=== PATIENT | male | born 1965 | race Caucasian/White ===

== ENCOUNTER 2017-01-15 16:36 | Emergency (ER) | payer OTHER ==
[~2017-01-15] VITALS: Ht 180.3 cm; Wt 102.1 kg
[~2017-01-15 16:36] MED LIST: /ATOR40TA PO; AMBI12.52 PO; ASPI81TA51 PO; BYST5TAB PO; CLOP75TA2 PO; FLUTISP; NITR4TASL SL; PROZ10CA7 PO; VITMTA PO; XANA0.5T PO
[2017-01-15] MEDS ORDERED: CLINDAMYCIN (16:55)
[2017-01-15] MEDS ORDERED: PROZ20CA11 PO (16:55)
[2017-01-15] MEDS ORDERED: BYST2.5T2 PO (16:55)
[2017-01-15] MEDS ORDERED: METF750T PO (16:55)
--- NOTE | 2017-01-15 20:00 | REPUSA ---
Clinical history: Pain, swelling. Findings: The right common femoral, superficial femoral, popliteal, and other deep venous structures compress normally and demonstrate normal color Doppler flow. Normal venous waveforms with augmentatio n are seen. Impression: No evidence of deep vein thrombosis in the right femoral popliteal venous system.
[2017-01-15 20:04] VITALS: BP 145/86
--- NOTE | 2017-01-15 20:10 | REPUSA ---
Clinical history: right leg swelling/mass. Findings: Real-time ultrasound imaging of the right lower leg anteriorly was performed. Normal hetero geneous fibroglandular tissue is noted. There is a focal well circumscribed fluid collection in the a nterior subcutaneous tissues measuring 4.3 x 3.6 x 0.7 cm. No significant increased vascularity is se en at the site. No evidence of calcifications are appreciated. No other gross abnormalities. Impression: Discrete cystic collection in the right anterior soft tissues that the level of the lower leg, likely representing a posttraumatic hematoma. Follow-up is suggested as clinically indicated.
--- NOTE | 2017-01-16 09:50 | ED PDOC ---
Provider Note dr hernandez faxed formal report of [facility] Merari Joy MD Jan 16, 2017 09:50
== END 2017-01-15 20:19 | disposition home or self-care (01) ==
LOC: M ED 18:55
DX: S80.11XA Contusion of right lower leg, initial encounter (principal); Z87.891 Personal history of nicotine dependence; Z86.73 Personal history of transient ischemic attack (TIA), and cerebral infarction without residual deficits; Z98.61 Coronary angioplasty status; X58.XXXA Exposure to other specified factors, initial encounter; Y92.89 Other specified places as the place of occurrence of the external cause; Y93.89 Activity, other specified; Y99.0 Civilian activity done for income or pay

== ENCOUNTER 2017-05-23 15:23 | Emergency (ER) | payer OTHER ==
[~2017-05-23] VITALS: Ht 180.3 cm; Wt 102.1 kg
[~2017-05-23 15:23] MED LIST changes: +BYST2.5T2 PO; +CLINDAMYCIN; +METF750T PO; +PROZ20CA11 PO
[2017-05-23] MEDS ORDERED: NITROGLYCERIN 0.4 MG SUBL TABLET SL ONE (16:00)
[2017-05-23] MEDS ORDERED: ASPIRIN 81 MG CHEW TABLET PO ONE (16:00)
[2017-05-23 16:30] VITALS: BP 129/85
[2017-05-23 16:46] LABS: BASO # 0.1 K/mm3 (0.0-0.2); EOS # 0.1 K/mm3 (0.0-0.50); EOS % 1.9 % (0.0-3.0); LARGE UNSTAINED CELL # 0.2 K/mm3 (0.0-0.4); LARGE UNSTAINED CELL % 3.1 % (0.0-4.0); LYMPH # 1.8 K/mm3 (1.5-4.5); LYMPH % 23.4 % (24.0-44.0); MEAN CORPUSCULAR HEMOGLOBIN 30.1 pg (27.0-33.0); MEAN CORPUSCULAR HGB CONC 34.8 g/dl (32.0-36.5); MEAN CORPUSCULAR VOLUME 86.5 fl (80.0-96.0); MONO # 0.7 K/mm3 (0.0-0.8); MONO % 10.1 % (0.0-5.0); NEUTROPHILS # 4.1 K/mm3 (1.8-7.7); NEUTROPHILS % 60.4 % (36.0-66.0); PLATELET COUNT, AUTOMATED 270 k/mm3 (150-450); RED CELL DISTRIBUTION WIDTH 12.9 % (11.5-14.5); WHITE BLOOD COUNT 6.7 K/mm3 (4.0-10.0)
[2017-05-23 16:53] LABS: INR 1.02
[2017-05-23 17:14] LABS: ALBUMIN 3.6 GM/DL (3.2-5.2); ALKALINE PHOSPHATASE 93 U/L (45-117); ALT/SGPT 77 U/L (12-78); ANION GAP 6 MEQ/L (8-16); AST/SGOT 46 U/L (15-37); BILIRUBIN,DIRECT 0.3 MG/DL (0.0-0.2); BILIRUBIN,TOTAL 1.4 MG/DL (0.2-1.0); BLOOD UREA NITROGEN 12 MG/DL (7-18); CALCIUM LEVEL 8.7 MG/DL (8.5-10.1); CARBON DIOXIDE LEVEL 27 MEQ/L (21-32); CHLORIDE LEVEL 105 MEQ/L (98-107); CREATININE FOR GFR 0.79 MG/DL (0.70-1.30); GLOMERULAR FILTRATION RATE > 60.0 (>60); GLUCOSE, FASTING 105 MG/DL (70-105); SODIUM LEVEL 138 MEQ/L (136-145); TOTAL PROTEIN 7.2 GM/DL (6.4-8.2)
--- NOTE | 2017-05-23 17:56 | REP ---
CHEST, TWO VIEWS: There is no evidence of acute infiltrate. No pleural effusion is seen. The heart is normal in size. The mediastinal silhouette is unremarkable. The visualized osseous structures are intact. IMPRESSION: No acute pulmonary disease. Signed by Shoaib Kerns MD 05/23/2017 07:29 P
[2017-05-23] MEDS ORDERED: metFORMIN (GLUCOPHAGE) 500 MG TAB PO ONE (18:30)
[2017-05-23] MEDS ORDERED: ISOVUE-370 76% 100ML VIAL (Q9967) As Ordered ONE (18:40)
--- NOTE | 2017-05-23 19:10 | REPUSA ---
CT angiogram of the chest Clinical statement: Chest pain and shortness of breath. Technique: Multiple axial CT images were obtained from the thoracic inlet through the upper abdomen a fter a bolus administration of nonionic intravenous contrast. Coronal and sagittal reconstructions we re also obtained. No comparison is available. Findings: The pulmonary arteries are well-opacified with contrast, with no intraluminal filling defec ts to suggest embolism. The thoracic aorta is unremarkable. Thyroid gland is within normal limits. Th ere is no thoracic lymphadenopathy. There are no pericardial or pleural effusions. The lungs are nikki r. Limited imaging of the upper abdomen is unremarkable. There are no suspicious osseous lesions. Impression: Unremarkable CT examination of the chest. No evidence of pulmonary embolism.
--- NOTE | 2017-05-23 19:41 | ECGEPIP ---
Stationary ECG Study [facility] - ED Test Date: 2017-05-23 Pat Name: ZEINA CA Department: Room: - Gender: M Chief Orthoptist: ervin : 1965 Requested By: DIONICIO Moreno Order Number: [id number] Reading MD: Tommy Bob Measurements Intervals Fertile Rate: 62 P: 50 NC: 148 QRS: 24 QRSD: 102 T: 43 QT: 408 QTc: 416 Interpretive Statements SINUS RHYTHM INFERIOR MYOCARDIAL INFARCTION, PROBABLY OLD INTERPRETATION BASED ON A DEFAULT AGE OF 40 YEARS SIMILAR TO 09/01/15 Electronically Signed On 05-23-2017 19:41:03 EDT by Tommy Bob
[2017-05-23 22:38] VITALS: BP 110/78
--- NOTE | 2017-05-27 19:12 | ECGEPIP ---
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 Electronically Signed On 05-27-2017 19:12:29 EDT by Eder Torres
== END 2017-05-23 22:50 | disposition home or self-care (01) ==
LOC: M ED 15:23
DX: R07.9 Chest pain, unspecified (principal); I25.2 Old myocardial infarction; I10 Essential (primary) hypertension; E11.9 Type 2 diabetes mellitus without complications; E78.5 Hyperlipidemia, unspecified; Z95.5 Presence of coronary angioplasty implant and graft; Z87.39 Personal history of other diseases of the musculoskeletal system and connective tissue; Z87.891 Personal history of nicotine dependence; Z79.82 Long term (current) use of aspirin; Z79.899 Other long term (current) drug therapy
CPT/HCPCS: 36415; 71020; 71275; 80048; 80076; 82550; 82553; 83690; 83880; 85025; 85610; 85730; 93005; 93041; 94760; 99285; Q9967

== ENCOUNTER 2019-04-01 10:34 | Day surgery (SDC) | payer OTHER ==
[~2019-04-01] VITALS: Ht 180.3 cm; Wt 98.0 kg
[~2019-04-01 10:34] MED LIST changes: -/ATOR40TA PO; +ASPI81TA85 PO; +FLUT1SPR2; -FLUTISP; +JARD1TAB PO; +LIPI1TAB2 PO; +LIPI20TA PO; +MOBI15TA PO; +NS 1,000 ML IV ONE
[2019-04-01] MEDS ORDERED: PROPOFOL 200 MG/20 ML VIAL As Ordered ONE ×2 (11:16→11:23)
[2019-04-01] MEDS ORDERED: LIDOCAINE 2% INJ 100 MG/5 ML SDV (FOR ANES.) As Ordered ONE (11:16)
--- NOTE | 2019-04-01 11:28 | ROOR ---
Patient Name: Radames Bear Procedure Date: 04/01/2019 11:02 AM Date of : 1965 Age: 53 Room: [facility] Gender: Male Note Status: Finalized Procedure: Total Colonoscopy to Cecum + Biopsy Polypectomy Indications: Colon cancer screening in patient at increased risk: Colorectal cancer in father Providers: Memo Weston MD Referring MD: Alex Cox MD Requesting Provider: Medicines: Monitored Anesthesia Care Complications: No immediate complications. Procedure: Pre-Anesthesia Assessment: - The heart rate, respiratory rate, oxygen saturations, blood pressure, adequacy of pulmonary ventilation, and response to care were monitored throughout the procedure. The Colonoscope was introduced through the anus and advanced to the cecum, identified by appendiceal orifice and ileocecal valve. The colonoscopy was performed without difficulty. The patient tolerated the procedure well. The quality of the bowel preparation was excellent. Findings: The perianal and digital rectal examinations were normal. Non-bleeding internal hemorrhoids were found during retroflexion. The hemorrhoids were small and Grade I (internal hemorrhoids that do not prolapse). A small polyp was found in the cecum. The polyp was sessile. The polyp was removed with a jumbo cold forceps. Resection and retrieval were complete. The exam was otherwise without abnormality on direct and retroflexion views. Impression: - Non-bleeding internal hemorrhoids. - One small polyp in the cecum, removed with a jumbo cold forceps. Resected and retrieved. - The examination was otherwise normal on direct and retroflexion views. - The exam was otherwise normal to the cecum. Recommendation: - Patient has a contact number available for emergencies. The signs and symptoms of potential delayed complications were discussed with the patient. Return to normal activities tomorrow. Written discharge instructions were provided to the patient. - Discharge patient to home. - Continue present medications. - Await pathology results. - Telephone GI clinic for pathology results in 1 week. - Check Portal Online for Path Results.([email or web address] - Repeat colonoscopy in 5 years for surveillance based on pathology results. - Return to referring physician. - The findings and recommendations were discussed with the patient's family. Memo Weston MD Memo Weston MD 04/01/2019 11:27:57 AM Electronically signed by Memo Weston MD Number of Addenda: 0 Note Initiated On: 04/01/2019 11:02 AM Estimated Blood Loss: Estimated blood loss: none.
[2019-04-01 11:45] VITALS: BP 127/77
== END 2019-04-01 11:55 | disposition home or self-care (01) ==
LOC: M OPP 10:34
PROVIDERS: ATTEND Internal Medicine Gastroenterology
DX: D12.0 Benign neoplasm of cecum (principal); K64.0 First degree hemorrhoids; Z12.11 Encounter for screening for malignant neoplasm of colon; Z80.0 Family history of malignant neoplasm of digestive organs

== ENCOUNTER → 2019-07-17 | Outpatient (REF) | payer OTHER ==
[~2019-07-17] MED LIST changes: -METF750T PO; +METF750T36 PO; -NS 1,000 ML IV ONE
[2019-07-17 13:03] LABS: RHEUMATOID FACTOR QUANT < 10.0 IU/ML (<15.0); URIC ACID 4.2 MG/DL (3.5-7.2)
[2019-07-21 00:06] LABS: ANTINUCLEAR ANTIBODIES DIRECT Negative (Negative); CYCLIC CITRULLINATED PEPTIDE 12 units (0-19); Lyme Disease IgG Ab 18 kDa Ban Absent (.); Lyme Disease IgG Ab 23 kDa Ban Absent (.); Lyme Disease IgG Ab 28 kDa Ban Absent (.); Lyme Disease IgG Ab 30 kDa Ban Absent (.); Lyme Disease IgG Ab 39 kDa Ban Absent (.); Lyme Disease IgG Ab 41 kDa Ban Absent (.); Lyme Disease IgG Ab 45 kDa Ban Absent (.); Lyme Disease IgG Ab 58 kDa Ban Absent (.); Lyme Disease IgG Ab 66 kDa Ban Absent (.); Lyme Disease IgG Ab 93 kDa Ban Absent (.); Lyme Disease IgG West Blot Int Negative (.); Lyme Disease IgG/IgM Antibodie <0.91 ISR (0.00-0.90); Lyme Disease IgM Ab 23 kDa Ban Absent (.); Lyme Disease IgM Ab 39 kDa Ban Absent (.); Lyme Disease IgM Ab 41 kDa Ban Absent (.); Lyme Disease IgM Ab Quantitati 1.15 index (0.00-0.79); Lyme Disease IgM West Blot Int Negative (.)
== END ==
LOC: M LABDRAW1 12:04
PROVIDERS: ATTEND Family Medicine
DX: M25.50 Pain in unspecified joint (principal)

== ENCOUNTER → 2020-01-14 | Outpatient (REF) | payer OTHER | LOC: M SFHCLERA 18:54 | PROVIDERS: ATTEND Physician Assistant | DX: N45.1 Epididymitis (principal) ==

== ENCOUNTER 2020-01-22 10:56 | Emergency (ER) | payer OTHER ==
[~2020-01-22] VITALS: Ht 180.3 cm; Wt 98.0 kg
[2020-01-22] MEDS ORDERED: TRUL10IN SC (11:06)
[2020-01-22 12:08] LABS: BASO # 0.1 10^3/uL (0.0-0.2); EOS # 0.2 10^3/uL (0.0-0.5); EOS % 2.6 % (0.0-3.0); HEMATOCRIT 44.3 % (42.0-52.0); HEMOGLOBIN 15.2 g/dl (13.5-17.5); LYMPH # 1.3 10^3/uL (1.5-5.0); MEAN CORPUSCULAR HEMOGLOBIN 30.6 pg (27.0-33.0); MEAN CORPUSCULAR HGB CONC 34.3 g/dl (32.0-36.5); MEAN CORPUSCULAR VOLUME 89.1 fl (80.0-96.0); MONO # 0.7 10^3/uL (0.0-0.8); MONO % 10.2 % (0.0-5.0); NEUTROPHILS # 4.6 10^3/uL (1.5-8.5); NEUTROPHILS % 66.5 % (36.0-66.0); PLATELET COUNT, AUTOMATED 281 10^3/uL (150-450); RED BLOOD COUNT 4.97 10^6/uL (4.30-6.10)
[2020-01-22 12:33] LABS: BLOOD UREA NITROGEN 12 MG/DL (7-18); CALCIUM LEVEL 9.3 MG/DL (8.5-10.1); CARBON DIOXIDE LEVEL 30 MEQ/L (21-32); CHLORIDE LEVEL 101 MEQ/L (98-107); CREATININE FOR GFR 0.82 MG/DL (0.70-1.30); GLOMERULAR FILTRATION RATE > 60.0 (>56); GLUCOSE, FASTING 124 MG/DL (70-100); POTASSIUM SERUM 4.4 MEQ/L (3.5-5.1); SODIUM LEVEL 138 MEQ/L (136-145)
[2020-01-22 13:23] LABS: APPEARANCE, URINE CLEAR (CLEAR); BILIRUBIN, URINE AUTO NEGATIVE (NEGATIVE); BLOOD, URINE BLOOD NEGATIVE (NEGATIVE); COLOR, URINE YELLOW (YELLOW); GLUCOSE, URINE (UA) AUTO 3+ mg/dL (NEGATIVE); KETONE, URINE AUTO TRACE mg/dL (NEGATIVE); LEUKOCYTE ESTERASE, URINE AUTO NEGATIVE (NEGATIVE); NITRITE, URINE AUTO NEGATIVE (NEGATIVE); PROTEIN, URINE AUTO NEGATIVE (NEGATIVE); SPECIFIC GRAVITY URINE AUTO 1.023 (1.002-1.035); UROBILINOGEN, URINE AUTO 0.2 mg/dL (0.0-2.0)
--- NOTE | 2020-01-22 13:24 | REP ---
Scrotal ultrasound for right groin/testicular pain. The patient had a a of as at the knee 10 years ago. The right testis measures 5.0 x 2.2 x 2.9 cm. The left testis measures 4.5 x 2.4-0.4 cm. The testes are normal size. There is vascular flow in both testes. The Doppler resistive index in the parenchymal arteries of the right testis is 0.72 and left testis 0.50. There are no testicular masses or cysts. There is tubular ectasia of the right epididymis and vas deferens. There is a small cyst at the upper pole of the left testis, likely a cyst of the tunica albuginea. There is a 3 mm complex right epididymal head cyst. There are multiple 3 mm cysts in the left epididymal head. There are bilateral varicoceles. Impression: Tubular ectasia of the right epididymis and vas deferens. Bilateral varicoceles. Tunica albuginea cyst at the upper pole of the left testis. Bilateral epididymal head cysts as described. Electronically Signed by Shoaib Nunes MD 01/22/2020 01:15 P
[2020-01-22 13:27] LABS: BACTERIA, URINE AUTO NEGATIVE (NEGATIVE); MUCUS, URINE SMALL (NEGATIVE); RBC, URINE AUTO 1 /HPF (0-3); SQUAMOUS EPITHELIAL CELL UR AU 0 /HPF (0-6); WBC, URINE AUTO 3 /HPF (0-3)
--- NOTE | 2020-01-22 13:27 | REP ---
Bladder ultrasound: The pre void bladder volume is 91 ml., the bladder is incompletely distended. The postvoid bladder volume is 22 ml. The postvoid residual is 24%. The bladder wall is mildly thickened, however, this could be artifact from incomplete distension. The prostate measures 3.6 x 3.8 x 2.5 cm for a volume of 17.9 milliliters. This is normal size. The left inguinal canal has an unremarkable appearance. The left inguinal canal demonstrates a non reducible fat containing hernia. Electronically Signed by Shoaib Nunes MD 01/22/2020 01:19 P
[2020-01-22] MEDS ORDERED: BISACODYL 10 MG SUPP PR ONE (14:15)
[2020-01-22] MEDS ORDERED: DICYCLOMINE 10 MG CAP PO ONE (14:15)
[2020-01-22] MEDS ORDERED: SIMETHICONE 80 MG CHEW TAB PO ONE (14:15)
--- NOTE | 2020-01-22 14:48 | REP ---
Abdomen two views including two supine and one upright views of the : Comparisons is rhe CT of the abdomen - pelvis dated 08/17/2007. The bowel gas pattern is normal. There are no calcifications. The skeletal structures and soft tissues otherwise are unremarkable. There is a moderate volume of fecal residue in the colon. Impression: Normal bowel gas pattern. Electronically Signed by Shoaib Nunes MD 01/22/2020 02:39 P
[2020-01-22 16:13] VITALS: BP 134/75
[2020-01-22] MEDS ORDERED: DICY20TA PO (16:21)
[2020-01-22] MEDS ORDERED: SIME180C PO (16:21)
[2020-01-22] MEDS ORDERED: COLA100C5 PO (16:21)
[2020-01-22] MEDS ORDERED: MIRA3350 PO (16:21)
--- NOTE | 2020-01-24 18:47 | ED PDOC ---
Post-Departure Follow-Up dr bryant faxed formal report of scrotal us for fu Merari Whittington MD Jan 24, 2020 18:47
== END 2020-01-22 16:34 | disposition home or self-care (01) ==
LOC: M ED 10:56
DX: K40.90 Unilateral inguinal hernia, without obstruction or gangrene, not specified as recurrent (principal); I86.1 Scrotal varices; N50.3 Cyst of epididymis; K59.00 Constipation, unspecified; E11.9 Type 2 diabetes mellitus without complications; I25.10 Atherosclerotic heart disease of native coronary artery without angina pectoris; Z79.82 Long term (current) use of aspirin; Z79.84 Long term (current) use of oral hypoglycemic drugs; Z79.899 Other long term (current) drug therapy

== ENCOUNTER 2020-01-29 13:34 | Emergency (ER) | payer OTHER ==
[~2020-01-29] VITALS: Ht 180.3 cm; Wt 95.6 kg
[~2020-01-29 13:34] MED LIST changes: +COLA100C5 PO; +DICY20TA PO; +MIRA3350 PO; +SIME180C PO; +TRUL10IN SC
[2020-01-29] MEDS ORDERED: NS 1,000 ML IV ONE (15:00)
[2020-01-29] MEDS ORDERED: ONDANSETRON 4MG/2ML VIAL (J2405) IV ONE (15:00)
[2020-01-29] MEDS ORDERED: KETOROLAC 30 MG/ML VIAL (J1885) IV ONE (15:00)
[2020-01-29 15:38] LABS: BASO # 0.1 10^3/uL (0.0-0.2); BASO % 0.7 % (0.0-1.0); EOS # 0.1 10^3/uL (0.0-0.5); EOS % 1.1 % (0.0-3.0); HEMATOCRIT 41.4 % (42.0-52.0); HEMOGLOBIN 14.1 g/dl (13.5-17.5); LYMPH # 1.9 10^3/uL (1.5-5.0); LYMPH % 25.3 % (24.0-44.0); MEAN CORPUSCULAR HEMOGLOBIN 30.3 pg (27.0-33.0); MEAN CORPUSCULAR HGB CONC 34.1 g/dl (32.0-36.5); MEAN CORPUSCULAR VOLUME 88.8 fl (80.0-96.0); MONO # 0.8 10^3/uL (0.0-0.8); MONO % 10.2 % (0.0-5.0); NEUTROPHILS # 4.7 10^3/uL (1.5-8.5); NEUTROPHILS % 62.3 % (36.0-66.0); PLATELET COUNT, AUTOMATED 300 10^3/uL (150-450); RED BLOOD COUNT 4.66 10^6/uL (4.30-6.10); WHITE BLOOD COUNT 7.5 10^3/uL (4.0-10.0)
[2020-01-29 16:07] LABS: ALT/SGPT 58 U/L (12-78); BILIRUBIN,DIRECT 0.4 MG/DL (0.0-0.2); BILIRUBIN,TOTAL 2.6 MG/DL (0.2-1.0); BLOOD UREA NITROGEN 16 MG/DL (7-18); CALCIUM LEVEL 9.1 MG/DL (8.5-10.1); CARBON DIOXIDE LEVEL 30 MEQ/L (21-32); CHLORIDE LEVEL 103 MEQ/L (98-107); CREATININE FOR GFR 0.86 MG/DL (0.70-1.30); GLOMERULAR FILTRATION RATE > 60.0 (>56); GLUCOSE, FASTING 105 MG/DL (70-100); LIPASE 69 U/L (73-393); POTASSIUM SERUM 4.4 MEQ/L (3.5-5.1); SODIUM LEVEL 136 MEQ/L (136-145); TOTAL PROTEIN 7.6 GM/DL (6.4-8.2)
--- NOTE | 2020-01-29 17:19 | REPVR ---
PROCEDURE INFORMATION: Exam: US Abdomen Limited, Right Upper Quadrant Exam date and time: 01/29/2020 5:09 PM Age: 54 years old Clinical indication: Loose stools / weight loss; Additional info: Loose stools/weight loss TECHNIQUE: Imaging protocol: Real-time ultrasound of the abdomen with image documentation. Examination was focused on the right upper quadrant. COMPARISON: TN ABDOMEN (MIN 2 VIEW) 01/22/2020 2:03 PM FINDINGS: Liver: Mildly echogenic liver. No focal mass Gallbladder: Layering sludge within the gallbladder. No wall thickening.Sonographic Diaz's sign is negative. Common bile duct: Normal. No stones. No dilation. Common bile duct measures 0.5 cm in diameter. Pancreas: Visualized pancreas is unremarkable. Right kidney: The right kidney measures 13.7 cm in length. Normal echogenicity. No hydronephrosis or stones. IMPRESSION: 1. Layering sludge within the gallbladder. No sonographic evidence of acute cholecystitis. 2. Mildly echogenic liver, which could reflect hepatic steatosis. Electronically signed by: Elmer Vo On 01/29/2020 17:19:16 PM
[2020-01-29 17:44] VITALS: BP 121/78
== END 2020-01-29 17:46 | disposition home or self-care (01) ==
LOC: M ED 13:34
DX: N40.0 Benign prostatic hyperplasia without lower urinary tract symptoms (principal); K87 Disorders of gallbladder, biliary tract and pancreas in diseases classified elsewhere; E11.9 Type 2 diabetes mellitus without complications; I10 Essential (primary) hypertension; E78.5 Hyperlipidemia, unspecified; Z79.899 Other long term (current) drug therapy; Z79.84 Long term (current) use of oral hypoglycemic drugs; Z79.82 Long term (current) use of aspirin; Z87.891 Personal history of nicotine dependence
CPT/HCPCS: 76705; 80048; 80076; 81001; 83690; 85025; 96361; 96374; 96375; 99284; J1885; J2405

== ENCOUNTER → 2021-03-03 | Outpatient (REF) | payer OTHER ==
[~2021-03-03] MED LIST changes: -ASPI81TA85 PO; +ASPI81TA86 PO; -DICY20TA PO; +DICY20TA3 PO; -SIME180C PO; +SIME180C25 PO
[2021-03-03 18:21] LABS: CREATININE, URINE 60.2 MG/DL; MALB URINE SIEMENS 5.6 MG/L; MAU/CREAT RATIO 9.3 MCG/MG (0.0-30.0)
== END ==
LOC: M LAB REF 16:47
PROVIDERS: ATTEND Nurse Practitioner Family
DX: E11.65 Type 2 diabetes mellitus with hyperglycemia (principal)

== ENCOUNTER 2021-05-22 16:24 | Emergency (ER) | payer OTHER ==
[~2021-05-22] VITALS: Ht 175.3 cm; Wt 93.3 kg
[2021-05-22] MEDS ORDERED: NS 1,000 ML IV ONE (19:50)
[2021-05-22 19:56] LABS: BASO % 0.7 % (0.0-1.0); EOS # 0.1 10^3/uL (0.0-0.5); EOS % 1.5 % (0.0-3.0); HEMATOCRIT 30.4 % (42.0-52.0); HEMOGLOBIN 9.5 g/dl (13.5-17.5); LYMPH # 1.2 10^3/uL (1.5-5.0); LYMPH % 21.1 % (24.0-44.0); MEAN CORPUSCULAR HEMOGLOBIN 33.1 pg (27.0-33.0); MEAN CORPUSCULAR HGB CONC 31.3 g/dl (32.0-36.5); MEAN CORPUSCULAR VOLUME 105.9 fl (80.0-96.0); MONO # 0.5 10^3/uL (0.0-0.8); MONO % 9.8 % (2.0-8.0); NEUTROPHILS # 3.6 10^3/uL (1.5-8.5); PLATELET COUNT, AUTOMATED 251 10^3/uL (150-450); RED BLOOD COUNT 2.87 10^6/uL (4.30-6.10); WHITE BLOOD COUNT 5.5 10^3/uL (4.0-10.0)
[2021-05-22 20:10] LABS: INR 1.05; PARTIAL THROMBOPLASTIN TIME 35.5 SECONDS (24.2-38.5); PROTHROMBIN TIME 13.9 SECONDS (12.5-14.3)
[2021-05-22 20:19] LABS: ALBUMIN 3.9 GM/DL (3.2-5.2); ALT/SGPT 39 U/L (12-78); BILIRUBIN,DIRECT 0.5 MG/DL (0.0-0.2); BILIRUBIN,TOTAL 8.3 MG/DL (0.2-1.0); BLOOD UREA NITROGEN 16 MG/DL (7-18); CALCIUM LEVEL 8.6 MG/DL (8.5-10.1); CARBON DIOXIDE LEVEL 29 MEQ/L (21-32); CHLORIDE LEVEL 106 MEQ/L (98-107); CREATININE FOR GFR 0.64 MG/DL (0.70-1.30); GLOMERULAR FILTRATION RATE > 60.0 (>56); GLUCOSE, FASTING 104 MG/DL (70-100); LIPASE 67 U/L (73-393); POTASSIUM SERUM 4.1 MEQ/L (3.5-5.1); SODIUM LEVEL 140 MEQ/L (136-145); TOTAL PROTEIN 6.7 GM/DL (6.4-8.2)
[2021-05-22 20:38] LABS: APPEARANCE, URINE CLEAR (CLEAR); BACTERIA, URINE AUTO NEGATIVE (NEGATIVE); BILIRUBIN, URINE AUTO NEGATIVE (NEGATIVE); BLOOD, URINE BLOOD NEGATIVE (NEGATIVE); COLOR, URINE YELLOW (YELLOW); GLUCOSE, URINE (UA) AUTO 3+ mg/dL (NEGATIVE); KETONE, URINE AUTO NEGATIVE (NEGATIVE); LEUKOCYTE ESTERASE, URINE AUTO NEGATIVE (NEGATIVE); MUCUS, URINE SMALL (NEGATIVE); NITRITE, URINE AUTO NEGATIVE (NEGATIVE); PROTEIN, URINE AUTO NEGATIVE (NEGATIVE); RBC, URINE AUTO 2 /HPF (0-3); SPECIFIC GRAVITY URINE AUTO 1.035 (1.002-1.035); SQUAMOUS EPITHELIAL CELL UR AU 0 /HPF (0-6); WBC, URINE AUTO 0 /HPF (0-3)
[2021-05-22] MEDS ORDERED: ISOVUE-370 76% 100ML VIAL As Ordered ONE (20:53)
--- NOTE | 2021-05-22 22:58 | REPVR ---
PROCEDURE INFORMATION: Exam: CT Abdomen And Pelvis With Contrast Exam date and time: 05/22/2021 9:05 PM Age: 55 years old Clinical indication: Lower abd pain, jaundice TECHNIQUE: Imaging protocol: Computed tomography of the abdomen and pelvis with contrast. Radiation optimization: All CT scans at this facility use at least one of these dose optimization techniques: automated exposure control; mA and/or kV adjustment per patient size (includes targeted exams where dose is matched to clinical indication); or iterative reconstruction. Contrast material: ISOVUE 370; Contrast volume: 100 ml; Contrast route: INTRAVENOUS (IV); COMPARISON: 1. GALLBLADDER US 01/29/2020 4:59 PM 2. BLADDER (LIMITED PELVIC) US 01/22/2020 12:15:23 PM FINDINGS: Lungs: There is minimal dependent atelectasis in both lower lobes. The lungs were not fully imaged. Heart: No cardiomegaly or pericardial effusion is noted. There are coronary artery calcifications. Liver: The attenuation of the liver is lower compared to the spleen, which can be seen with fatty liver infiltration. No liver lesion is identified. The contour of the liver is smooth. No hepatomegaly is noted. Gallbladder and bile ducts: No calcified gallstones are noted. No gallbladder wall thickening, pericholecystic fluid, or pericholecystic inflammatory changes are identified. No dilation of the bile ducts is noted. No calcified stones are seen in the common bile duct. Pancreas: Normal. No dilation of the main pancreatic duct is noted. Spleen: No splenic lesion is noted. The spleen is enlarged and measures 15.1 cm. Adrenal glands: Normal. No adrenal mass is noted. Kidneys and ureters: No calculi are seen in the kidneys or ureters. There is no hydronephrosis or hydroureter. There are no wedge-shaped areas of low attenuation in the kidneys to suggest pyelonephritis. There is no renal abscess or perinephric fluid collection. There are several benign-appearing cysts in the liver measuring up to 7 mm, for which follow-up imaging is not necessary. Stomach and bowel: There is no evidence for a bowel obstruction, diverticulosis, diverticulitis, colitis, perforated viscus, pneumatosis intestinalis, intussusception, or volvulus. There is a moderate amount of formed stool in the cecum and ascending colon. A mild amount of stool is present in the remainder of the colon. Appendix: Normal. There is no evidence for appendicitis. Intraperitoneal space: No free air. No ascites. No abscess. Retroperitoneal space: No fluid collection. No mass. Vasculature: The abdominal aorta is patent, normal in caliber, and there is no dissection. The iliac arteries, common femoral arteries, renal arteries, celiac artery, superior mesenteric artery, and inferior mesenteric artery are patent. There are mild atherosclerotic calcifications. The portal veins, splenic vein, superior mesenteric vein, inferior mesenteric vein, and renal veins are patent. Lymph nodes: No enlarged lymph nodes. Urinary bladder: The distended urinary bladder is normal in appearance. No stones or masses are seen in the bladder. Reproductive: There are calcifications in the prostate gland. The seminal vesicles are unremarkable. Bones/joints: There is no fracture or dislocation. No suspicious osteolytic or osteoblastic lesion. There are degenerative changes involving the lower lumbar spine. Incidental note is made of an intraosseous hemangioma in the L3 vertebral body. Soft tissues: There is a small fat containing indirect right inguinal hernia. No soft tissue fluid collection. IMPRESSION: 1. No acute findings in the abdomen or pelvis. 2. Fatty liver. 3. Splenomegaly. 4. Small fat containing indirect right inguinal hernia. Electronically signed by: Sony Sung On 05/22/2021 22:58:21 PM
[2021-05-22 23:28] VITALS: BP 102/55
[2021-05-22 23:34] LABS: LDH LACTATE DEHYDROGENASE 270 U/L (87-241)
[2021-05-23 11:09] LABS: HEPATITIS A ANTIBODY IGM NEGATIVE (NEGATIVE); HEPATITIS B CORE ANTIBODY IGM NEGATIVE (NEGATIVE); HEPATITIS B SURFACE ANTIGEN NEGATIVE (NEGATIVE)
== END 2021-05-22 23:44 | disposition home or self-care (01) ==
LOC: M ED 16:24
DX: E80.7 Disorder of bilirubin metabolism, unspecified (principal); R16.1 Splenomegaly, not elsewhere classified; D64.9 Anemia, unspecified; R17 Unspecified jaundice; K40.20 Bilateral inguinal hernia, without obstruction or gangrene, not specified as recurrent; R10.9 Unspecified abdominal pain; I25.2 Old myocardial infarction; I10 Essential (primary) hypertension; E78.5 Hyperlipidemia, unspecified; G47.33 Obstructive sleep apnea (adult) (pediatric); Z87.442 Personal history of urinary calculi; Z95.5 Presence of coronary angioplasty implant and graft; Z79.82 Long term (current) use of aspirin; Z79.84 Long term (current) use of oral hypoglycemic drugs; Z79.899 Other long term (current) drug therapy
CPT/HCPCS: 74177; 80053; 81001; 82248; 82977; 83010; 83615; 83690; 85025; 85610; 85730; 86705; 86709; 86803; 86880; 87340; 96360; 99284; Q9967

== ENCOUNTER → 2021-05-26 | Outpatient (CLI) | payer OTHER ==
[~2021-05-26] MED LIST changes: +B-1250TA3 PO; +D31000TA2 PO; +DICY10CA13 PO; +DULO1CAP6 PO; +ECOT81TA5 PO; +FERR325T3 PO; +FLUTISP NARES; +METF10004 PO; +NITR0.4S14 SL; +OMEP-221 PO
[2021-05-26 17:05] LABS: BASO # 0.1 10^3/uL (0.0-0.2); BASO % 0.8 % (0.0-1.0); EOS # 0.1 10^3/uL (0.0-0.5); HEMATOCRIT 32.6 % (42.0-52.0); HEMOGLOBIN 10.3 g/dl (13.5-17.5); LYMPH # 1.3 10^3/uL (1.5-5.0); LYMPH % 20.9 % (24.0-44.0); MEAN CORPUSCULAR HEMOGLOBIN 33.6 pg (27.0-33.0); MEAN CORPUSCULAR HGB CONC 31.6 g/dl (32.0-36.5); MEAN CORPUSCULAR VOLUME 106.2 fl (80.0-96.0); MONO # 0.6 10^3/uL (0.0-0.8); MONO % 9.3 % (2.0-8.0); NEUTROPHILS # 4.1 10^3/uL (1.5-8.5); NEUTROPHILS % 66.2 % (36.0-66.0); PLATELET COUNT, AUTOMATED 293 10^3/uL (150-450); RED BLOOD COUNT 3.07 10^6/uL (4.30-6.10); WHITE BLOOD COUNT 6.1 10^3/uL (4.0-10.0)
[2021-05-26 17:32] LABS: ALT/SGPT 46 U/L (12-78); BILIRUBIN,TOTAL 5.6 MG/DL (0.2-1.0); BLOOD UREA NITROGEN 14 MG/DL (7-18); CALCIUM LEVEL 8.9 MG/DL (8.5-10.1); CARBON DIOXIDE LEVEL 31 MEQ/L (21-32); CHLORIDE LEVEL 105 MEQ/L (98-107); CREATININE FOR GFR 0.74 MG/DL (0.70-1.30); FERRITIN 228 NG/ML (26-388); GLOMERULAR FILTRATION RATE > 60.0 (>56); GLUCOSE, FASTING 134 MG/DL (70-100); IRON (FE) 90 UG/DL (65-175); LDH LACTATE DEHYDROGENASE 230 U/L (87-241); PERCENT SATURATION 27.8 % (19.7-50.0); POTASSIUM SERUM 3.9 MEQ/L (3.5-5.1); SODIUM LEVEL 138 MEQ/L (136-145); TOTAL IRON BINDING CAPACITY 324 UG/DL (250-450)
== END ==
LOC: M LAB 16:31
PROVIDERS: ATTEND Internal Medicine Medical Oncology
DX: R16.1 Splenomegaly, not elsewhere classified (principal)

== ENCOUNTER → 2021-06-23 | Outpatient (CLI) | payer OTHER ==
[~2021-06-23] MED LIST changes: +FOLI1TAB11 PO
--- NOTE | 2021-06-23 19:55 | ECHO ---
ECHOCARDIOGRAM DATE OF PROCEDURE: 06/23/2021 Age: Gender: Male Height: 150 cm Weight: 89 kg REFERRING PHYSICIAN: Freida Zhu M.D. DIAGNOSIS: Hereditary hemolytic anemia. MEASUREMENTS: IVS 1.2 LV 4.6 LVPW 1.1 LA 3.3 Aorta 3.6 Mitral E wave velocity 68 A wave velocity 61 E prime septal 7.9 E prime lateral 9.9 Left atrial volume index 30 Left ventricular ejection fraction 61% FINDINGS: This study is of a good technical quality. The patient is in sinus rhythm. Normal left ventricular (LV) size with mild left ventricular hypertrophy (LVH) and preserved LV systolic function. Calculated left ventricular ejection fraction (LVEF) 61%. Normal right ventricular (RV) size and systolic function. Both atria are normal. Aortic, mitral and tricuspid valve appear normal. Pulmonic valve was not well seen. No pericardial effusion is noted. Inferior vena cava is normal size. Aortic root, aortic arch and abdominal aorta appear normal. Doppler interrogation reveals competent aortic valve. There is trace mitral insufficiency. Tricuspid valve is functionally competent. Mitral inflow pattern and tissue Doppler imaging of mitral annulus reveal normal diastolic function. CONCLUSIONS: 1. Study is of good technical quality, patient is in sinus rhythm. 2. Normal left ventricular (LV) size and mild left ventricular hypertrophy (LVH) and preserved LV systolic function. Normal diastolic function. Calculated left ventricular ejection fraction (LVEF) 61%. 3. No significant valvular disease. 4. Normal central venous pressure. 5. Unable to estimate pulmonary artery pressure, but no signs to suggest pulmonary hypertension.
== END ==
LOC: M CARPUL 11:03
PROVIDERS: ATTEND Internal Medicine Medical Oncology
DX: D58.9 Hereditary hemolytic anemia, unspecified (principal)

== ENCOUNTER 2021-07-19 19:08 | Emergency (ER) | payer OTHER ==
[~2021-07-19] VITALS: Ht 180.3 cm; Wt 88.4 kg
[2021-07-19 19:08] VITALS: BP 121/69
[~2021-07-19 19:08] MED LIST changes: +LEVE1INJ5 SQ; +PRED10TA2 PO; +PRED20TA PO
== END 2021-07-19 22:58 | disposition left against medical advice (07) ==
LOC: M ED 19:08
DX: Z53.21 Procedure and treatment not carried out due to patient leaving prior to being seen by health care provider (principal)

== ENCOUNTER → 2022-07-31 | Outpatient (CLI) | payer OTHER ==
[~2022-07-31] MED LIST changes: -D31000TA2 PO; -OMEP-221 PO; +OMEP40CA5 PO; +PRED5TA PO; +VITA100093 PO
== END ==
LOC: M RAD 12:17
PROVIDERS: ATTEND Internal Medicine Medical Oncology
DX: Z12.2 Encounter for screening for malignant neoplasm of respiratory organs (principal); Z87.891 Personal history of nicotine dependence

== ENCOUNTER → 2022-08-05 | Outpatient (CLI) | payer OTHER | LOC: M LABSMTC 09:13 | PROVIDERS: ATTEND Anesthesiology | DX: Z01.818 Encounter for other preprocedural examination (principal); Z11.52 Encounter for screening for COVID-19 ==

== ENCOUNTER 2022-08-08 08:40 | Day surgery (SDC) | payer OTHER ==
[~2022-08-08] VITALS: Ht 185.4 cm; Wt 91.5 kg
[~2022-08-08 08:40] MED LIST changes: +NS 1,000 ML IV ONE
[2022-08-08] MEDS ORDERED: LIDOCAINE 2% 100MG/5ML SDV (FOR ANES.) As Ordered ONE (10:11)
[2022-08-08] MEDS ORDERED: propofoL 200 MG/20 ML VIAL As Ordered ONE (10:11)
[2022-08-08 11:03] VITALS: BP 124/69
== END 2022-08-08 11:06 | disposition home or self-care (01) ==
LOC: M OPP 08:40
PROVIDERS: ATTEND Internal Medicine Gastroenterology
DX: Z12.11 Encounter for screening for malignant neoplasm of colon (principal); Z86.010 Personal history of colon polyps; Z80.0 Family history of malignant neoplasm of digestive organs; K64.0 First degree hemorrhoids; K63.89 Other specified diseases of intestine; Z79.02 Long term (current) use of antithrombotics/antiplatelets; Z79.4 Long term (current) use of insulin; Z79.82 Long term (current) use of aspirin; Z79.899 Other long term (current) drug therapy; D59.10 Autoimmune hemolytic anemia, unspecified; I10 Essential (primary) hypertension; E78.5 Hyperlipidemia, unspecified; I25.10 Atherosclerotic heart disease of native coronary artery without angina pectoris; I25.2 Old myocardial infarction; G47.30 Sleep apnea, unspecified; F17.200 Nicotine dependence, unspecified, uncomplicated

== ENCOUNTER → 2023-04-01 | Outpatient (CLI) | payer BC ==
[~2023-04-01] MED LIST changes: +CETI-24; +FLUT50SP17 NARES; -FLUTISP NARES; +INSU100I6 SQ; +INSUDET SC; +JARD1TAB3 PO; -LEVE1INJ5 SQ; -NS 1,000 ML IV ONE; +SEMA0.257
== END ==
LOC: M RAD 06:47
PROVIDERS: ATTEND Internal Medicine Medical Oncology
DX: R16.1 Splenomegaly, not elsewhere classified (principal)

== ENCOUNTER → 2023-04-16 | Outpatient (REF) | payer BC ==
[2023-04-16 19:25] LABS: CREATININE, URINE 70.8 MG/DL; MALB URINE SIEMENS < 3.0 MG/L; MAU/CREAT RATIO 4.2 MCG/MG (0.0-30.0)
== END ==
LOC: M LAB REF 17:18
PROVIDERS: ATTEND Nurse Practitioner Family
DX: E11.65 Type 2 diabetes mellitus with hyperglycemia (principal)

== ENCOUNTER → 2023-06-19 | Outpatient (REF) | payer BC ==
[~2023-06-19] MED LIST changes: +DICY-61 PO; -DICY10CA13 PO
[2023-06-19 15:35] LABS: BASO % 0.6 % (0.0-1.0); EOS # 0.1 10^3/uL (0.0-0.5); EOS % 1.7 % (0.0-3.0); HEMATOCRIT 47.4 % (42.0-52.0); HEMOGLOBIN 15.9 g/dl (13.5-17.5); LYMPH # 1.3 10^3/uL (1.5-5.0); LYMPH % 20.5 % (24.0-44.0); MEAN CORPUSCULAR HEMOGLOBIN 30.3 pg (27.0-33.0); MEAN CORPUSCULAR HGB CONC 33.5 g/dl (32.0-36.5); MEAN CORPUSCULAR VOLUME 90.3 fl (80.0-96.0); MONO # 0.6 10^3/uL (0.0-0.8); MONO % 8.4 % (2.0-8.0); NEUTROPHILS # 4.5 10^3/uL (1.5-8.5); NEUTROPHILS % 68.2 % (36.0-66.0); PLATELET COUNT, AUTOMATED 288 10^3/uL (150-450); RED BLOOD COUNT 5.25 10^6/uL (4.30-6.10); WHITE BLOOD COUNT 6.5 10^3/uL (4.0-10.0)
[2023-06-19 16:03] LABS: ALKALINE PHOSPHATASE 94 U/L (46-116); ALT/SGPT 28 U/L (7.0-40); AST/SGOT 18 U/L (<34); BILIRUBIN,TOTAL 1.9 MG/DL (0.3-1.2); BLOOD UREA NITROGEN 13 MG/DL (9-23); CALCIUM LEVEL 9.2 MG/DL (8.5-10.1); CARBON DIOXIDE LEVEL 27 MMOL/L (20-31); CHLORIDE LEVEL 106 MMOL/L (98-107); CREATININE FOR GFR 0.67 MG/DL (0.70-1.30); GLOMERULAR FILTRATION RATE > 60.0 (>56); GLUCOSE, FASTING 116 MG/DL (60-100); POTASSIUM SERUM 4.3 MMOL/L (3.5-5.1); SODIUM LEVEL 140 MMOL/L (136-145); TOTAL PROTEIN 6.9 G/DL (5.7-8.2)
[2023-06-19 16:04] LABS: RHEUMATOID FACTOR QUANT 5.8 IU/ML (<14)
[2023-06-19 16:05] LABS: ERYTHROCYTE SEDIMENTATION RATE 23 mm/hr (0-20); THYROID STIMULATING HORMONE 1.523 uIU/ML (0.55-4.78); TOTAL T3 128.6 NG/DL (60.0-181.0)
[2023-06-19 16:07] LABS: THYROID PEROXIDASE ANTIBODY < 28.0 U/ML (<60.0)
== END ==
LOC: M LAB REF 14:58
PROVIDERS: ATTEND Allergy & Immunology Allergy
DX: L50.1 Idiopathic urticaria (principal)

== ENCOUNTER → 2024-01-06 | Outpatient (CLI) | payer BC, OTHER ==
[~2024-01-06] MED LIST changes: +DULO1CAP5; -FLUT50SP17 NARES; +FLUTISP NARES
== END ==
LOC: M RAD 15:52
PROVIDERS: ATTEND Internal Medicine Medical Oncology
DX: Z12.2 Encounter for screening for malignant neoplasm of respiratory organs (principal); D58.9 Hereditary hemolytic anemia, unspecified

== ENCOUNTER → 2024-02-19 | Outpatient (REF) | payer BC | LOC: M LAB REF 16:43 | PROVIDERS: ATTEND Internal Medicine Gastroenterology | DX: R19.7 Diarrhea, unspecified (principal); R14.0 Abdominal distension (gaseous); Z80.0 Family history of malignant neoplasm of digestive organs ==

== ENCOUNTER → 2024-04-22 | Outpatient (CLI) | payer BC | LOC: M SLEEP HO 03-11 10:17 | PROVIDERS: ATTEND Nurse Practitioner Adult Health | DX: G47.33 Obstructive sleep apnea (adult) (pediatric) (principal) ==

== ENCOUNTER 2024-05-06 07:27 | Emergency (ER) | payer BC ==
[~2024-05-06] VITALS: Ht 175.3 cm; Wt 88.5 kg
[2024-05-06] MEDS: diazePAM 10MG/2ML SYRINGE IV ONE (10:48)
[2024-05-06 11:02] LABS: BASO # 0.1 10^3/uL (0.0-0.2); BASO % 0.6 % (0.0-1.0); EOS # 0.1 10^3/uL (0.0-0.5); EOS % 1.3 % (0.0-3.0); HEMATOCRIT 42.7 % (42.0-52.0); HEMOGLOBIN 14.5 g/dl (13.5-17.5); LYMPH # 1.1 10^3/uL (1.5-5.0); LYMPH % 13.7 % (24.0-44.0); MEAN CORPUSCULAR HEMOGLOBIN 30.5 pg (27.0-33.0); MEAN CORPUSCULAR VOLUME 89.7 fl (80.0-96.0); MONO # 0.9 10^3/uL (0.0-0.8); MONO % 10.2 % (2.0-8.0); NEUTROPHILS # 6.2 10^3/uL (1.5-8.5); NEUTROPHILS % 73.8 % (36.0-66.0); PLATELET COUNT, AUTOMATED 266 10^3/uL (150-450); RED BLOOD COUNT 4.76 10^6/uL (4.30-6.10); WHITE BLOOD COUNT 8.3 10^3/uL (4.0-10.0)
[2024-05-06 11:07] LABS: APPEARANCE, URINE CLEAR (CLEAR); BACTERIA, URINE AUTO NEGATIVE (NEGATIVE); BILIRUBIN, URINE AUTO NEGATIVE (NEGATIVE); BLOOD, URINE BLOOD NEGATIVE (NEGATIVE); COLOR, URINE YELLOW (YELLOW); GLUCOSE, URINE (UA) AUTO 3+ mg/dL (NEGATIVE); KETONE, URINE AUTO NEGATIVE (NEGATIVE); LEUKOCYTE ESTERASE, URINE AUTO NEGATIVE (NEGATIVE); NITRITE, URINE AUTO NEGATIVE (NEGATIVE); PROTEIN, URINE AUTO NEGATIVE (NEGATIVE); RBC, URINE AUTO 0 /HPF (0-3); SPECIFIC GRAVITY URINE AUTO 1.028 (1.002-1.035); SQUAMOUS EPITHELIAL CELL UR AU 0 /HPF (0-6); UROBILINOGEN, URINE AUTO 0.2 mg/dL (0.0-2.0); WBC, URINE AUTO 0 /HPF (0-3)
[2024-05-06 11:08] LABS: ERYTHROCYTE SEDIMENTATION RATE 17 mm/hr (0-20)
[2024-05-06 11:37] LABS: BLOOD UREA NITROGEN 10 MG/DL (9-23); CALCIUM LEVEL 9.1 MG/DL (8.5-10.1); CARBON DIOXIDE LEVEL 30 MMOL/L (20-31); CHLORIDE LEVEL 103 MMOL/L (98-107); CREATININE FOR GFR 0.71 MG/DL (0.70-1.30); GLOMERULAR FILTRATION RATE > 60.0 (>56); GLUCOSE, FASTING 119 MG/DL (60-100); POTASSIUM SERUM 4.5 MMOL/L (3.5-5.1); SODIUM LEVEL 137 MMOL/L (136-145)
[2024-05-06] MEDS ORDERED: VALI5TAB PO (12:31)
[2024-05-06] MEDS ORDERED: PRED20TA PO (12:33)
[2024-05-06 12:34] VITALS: BP 120/71; TEMP 96.5; O2SAT 95
== END 2024-05-06 12:40 | disposition home or self-care (01) ==
LOC: M ED 07:27
DX: M51.36 Other intervertebral disc degeneration, lumbar region (principal); I48.91 Unspecified atrial fibrillation; I25.119 Atherosclerotic heart disease of native coronary artery with unspecified angina pectoris; I25.2 Old myocardial infarction; E11.9 Type 2 diabetes mellitus without complications; I10 Essential (primary) hypertension; E78.5 Hyperlipidemia, unspecified; F10.10 Alcohol abuse, uncomplicated; Z79.1 Long term (current) use of non-steroidal anti-inflammatories (NSAID); Z79.4 Long term (current) use of insulin; Z79.84 Long term (current) use of oral hypoglycemic drugs; Z79.52 Long term (current) use of systemic steroids; Z79.899 Other long term (current) drug therapy
CPT/HCPCS: 72131; 80048; 81001; 85025; 85652; 86140; 96374; 99284; J1100; J3360

== ENCOUNTER → 2024-06-04 | Outpatient (CLI) | payer BC ==
[~2024-06-04] MED LIST changes: +VALI5TAB PO
== END ==
LOC: M RAD 10:34
PROVIDERS: ATTEND Nurse Practitioner
DX: M54.59 Other low back pain (principal)

== ENCOUNTER 2025-08-18 09:52 | Day surgery (SDC) | payer BC ==
[~2025-08-18] VITALS: Ht 180.3 cm; Wt 87.5 kg
[~2025-08-18 09:52] MED LIST changes: -CETI-24; +CETI-24 PO; -DULO1CAP5; +DULO1CAP5 PO; +ELIQ5TAB PO; +OMEP40CA4 PO; -PROZ20CA11 PO; +PROZ20CA12 PO; +SEMA0.257 PO; -SIME180C25 PO; +SIME1CAP4 PO
[2025-08-18] MEDS ORDERED: LIDOCAINE 2% 100 MG/5 ML SDV (FOR ANES.) As Ordered ONE (11:29)
[2025-08-18 11:39] VITALS: TEMP 97.6
[2025-08-18 11:56] VITALS: BP 110/64; O2SAT 99
== END 2025-08-18 12:05 | disposition home or self-care (01) ==
LOC: M OPP 09:52
PROVIDERS: ATTEND Internal Medicine Gastroenterology
DX: R12 Heartburn (principal); R14.0 Abdominal distension (gaseous); I48.91 Unspecified atrial fibrillation; Z95.5 Presence of coronary angioplasty implant and graft; G47.30 Sleep apnea, unspecified; Z88.7 Allergy status to serum and vaccine; Z91.048 Other nonmedicinal substance allergy status; Z79.01 Long term (current) use of anticoagulants; Z79.84 Long term (current) use of oral hypoglycemic drugs; Z79.85 Long-term (current) use of injectable non-insulin antidiabetic drugs; Z79.891 Long term (current) use of opiate analgesic; Z79.899 Other long term (current) drug therapy